=== PATIENT | male | born 1950 | race Two or more races ===

== ENCOUNTER 2024-09-11 17:28 | Inpatient (IN) | payer MEDICARE, BC ==
[~2024-09-11] VITALS: Ht 177.8 cm; Wt 96.2 kg
[2024-09-11 18:34] LABS: BASOPHILS % (AUTO) 0.6 % (0.0-2.0); EOSINOPHILS # (AUTO) 0.2 K/uL (0.0-0.7); EOSINOPHILS % (AUTO) 2.9 % (0.0-6.0); HEMATOCRIT 42 % (39-51); HEMOGLOBIN 14.3 g/dL (13.5-17.5); LYMPHOCYTES # (AUTO) 0.8 K/uL (0.8-4.8); LYMPHOCYTES % (AUTO) 10.8 % (20.0-44.0); MEAN CORPUSCULAR HEMOGLOBIN 31 PG (26.0-33.0); MEAN CORPUSCULAR HGB CONC 34 g/dl (31.0-36.0); MEAN CORPUSCULAR VOLUME 92 fL (80-96); MONOCYTES # (AUTO) 0.6 K/uL (0.1-1.30); NEUTROPHILS # (AUTO) 5.5 K/uL (1.8-8.9); NEUTROPHILS % (AUTO) 77.7 % (43.0-81.0); PLATELET COUNT (AUTO) 161 K/uL (150-450); RED BLOOD CELL COUNT(AUTO) 4.59 MIL/uL (4.5-6.0); RED CELL DISTRIBUTION WIDTH 14.8 % (11.5-15.0); WHITE BLOOD COUNT (AUTO) 7.1 K/uL (4.3-11.0)
[2024-09-11 18:40] LABS: CALCIUM, SERUM 9.7 mg/dL (8.5-10.1); CARBON DIOXIDE 24 mmol/L (21-32); CHLORIDE 106 mmol/L (98-107); GLUCOSE 142 mg/dL (74-106); POTASSIUM 4.5 mmol/L (3.5-5.1); SODIUM SERUM 140 mmol/L (136-145); UREA NITROGEN, BLOOD 34 mg/dL (7-18)
[2024-09-11 18:59] LABS: ALANINE AMINOTRANSFERASE 43 U/L (12-78); ALBUMIN 3.3 g/dL (3.4-5.0); ALKALINE PHOSPHATASE 68 U/L (46-116); ASPARTATE AMINOTRANSFERASE 33 U/L (15-37); BILIRUBIN,DIRECT 0.1 mg/dL (0.0-0.2); BILIRUBIN,TOTAL 0.5 mg/dL (0.2-1.0); TOTAL PROTEIN, SERUM 7.5 g/dL (6.4-8.2)
[2024-09-11] MEDS ORDERED: HYDROMORPHONE INJ 2 MG/ML DISP.SYRIN IV ONE (19:00)
[2024-09-11] MEDS ORDERED: MECLIZINE HCL 25 MG TABLET ONE (19:58)
[2024-09-11] MEDS: MECLIZINE HCL 12.5 MG TABLET PO ONE (20:05)
[2024-09-11] MEDS: IV NS 0.9% 1,000 ML BAG IV ONE (20:05)
[2024-09-11] MEDS ORDERED: MORPHINE SULFATE INJ 4 MG/ML DISP.SYRIN ONE (20:10)
[2024-09-11] MEDS ORDERED: ONDANSETRON HCL/PF 4 MG/2 ML VIAL ONE (20:10)
[2024-09-11] MEDS: ONDANSETRON HCL/PF 4 MG/2 ML VIAL IVP ONE (20:19)
[2024-09-11] MEDS: MORPHINE SULFATE INJ 2 MG/ML DISP.SYRIN IV ONE (20:20)
[2024-09-11] MEDS ORDERED: MAG HYDROX/AL HYDROX/SIMETH 30 ML UDC ONE (21:26)
[2024-09-11] MEDS ORDERED: FAMOTIDINE/PF INJ 20 MG/2 ML VIAL IV ONE (21:26)
[2024-09-11] MEDS: MAG HYDROX/AL HYDROX/SIMETH 30 ML UDC PO ONE (21:30)
[2024-09-11] MEDS: FAMOTIDINE/PF INJ 20 MG/2 ML VIAL IV ONE (21:30)
[2024-09-11 22:06] VITALS: BP 129/96; TEMP 97.9; O2SAT 96
[2024-09-11 22:30] VITALS: BP 129/86; TEMP 97.9; O2SAT 96
[2024-09-11 23:30] VITALS: BP_SYST 105; BP_SYST 107; BP_SYST 144; BP_DIAS 58; BP_DIAS 64; BP_DIAS 66
[2024-09-11] MEDS ORDERED: Z GUARD REMEDY 4 OZ OINT TP PRN (23:30)
[2024-09-11] MEDS ORDERED: MECLIZINE HCL 12.5 MG TABLET PO PRN (23:30)
[2024-09-11] MEDS ORDERED: MORPHINE SULFATE INJ 4 MG/ML DISP.SYRIN IV PRN (23:30)
[2024-09-11] MEDS ORDERED: ACETAMINOPHEN 325 MG TABLET PO PRN (23:30)
[2024-09-11] MEDS ORDERED: ONDANSETRON HCL/PF 4 MG/2 ML VIAL IVP PRN (23:30)
[2024-09-12] MEDS: NITROGLYCERIN PACKET 1 GM PACKET TOP SCH (00:07)
[2024-09-12] MEDS: DICYCLOMINE HCL 10 MG CAPSULE PO PRN (00:07)
[2024-09-12] MEDS: IV LR 1000 ML 1,000 ML IV PRN (00:48)
[2024-09-12 04:00] VITALS: BP 121/79; TEMP 97.9; O2SAT 95
[2024-09-12] MEDS ORDERED: DEXTROSE 50%-WATER 50 ML DISP.SYRIN IV PRN (04:30)
[2024-09-12] MEDS ORDERED: ASPI-1169 PO (04:47)
[2024-09-12] MEDS ORDERED: METO25TA6 PO (04:47)
[2024-09-12] MEDS ORDERED: ALLO100T PO (04:47)
[2024-09-12] MEDS ORDERED: ONDA-97 PO (04:47)
[2024-09-12] MEDS ORDERED: URSO250T3 PO (04:47)
[2024-09-12] MEDS ORDERED: GABA300C PO (04:47)
[2024-09-12] MEDS ORDERED: PANT40TA2 PO (04:47)
[2024-09-12] MEDS ORDERED: TELM40TA2 PO (04:47)
[2024-09-12] MEDS ORDERED: PRAV20TA4 PO (04:47)
[2024-09-12] MEDS ORDERED: TACR1CAP2 PO (04:47)
[2024-09-12] MEDS ORDERED: GLIM4TAB37 PO (04:47)
[2024-09-12] MEDS ORDERED: DAPA10TA PO (04:47)
[2024-09-12] MEDS ORDERED: CHOL500052 PO (04:47)
[2024-09-12] MEDS ORDERED: INSU100V7 SQ (04:47)
[2024-09-12] MEDS ORDERED: LORA-259 PO (04:47)
[2024-09-12 07:00] VITALS: BP 132/82; TEMP 97.3; O2SAT 98
[2024-09-12 07:18] LABS: APPEARANCE,URINE CLEAR (CLEAR); BILIRUBIN,URINE NEGATIVE (NEGATIVE); BLOOD, URINE NEGATIVE Ery/uL (NEGATIVE); COLOR,URINE YELLOW (YELLOW); KETONES,URINE NEGATIVE (NEGATIVE); LEUKOCYTE ESTERASE ,URINE NEGATIVE (NEGATIVE); NITRITE, URINE NEGATIVE (NEGATIVE); PROTEIN,URINE 2+ mg/dl (NEGATIVE); UGLUCOSE 2+ mg/dL (NEGATIVE); UROBILINOGEN,URINE 0.2 EU/dL (0.2)
[2024-09-12 07:19] LABS: BASOPHILS % (AUTO) 0.6 % (0.0-2.0); EOSINOPHILS # (AUTO) 0.1 K/uL (0.0-0.7); EOSINOPHILS % (AUTO) 2.4 % (0.0-6.0); HEMATOCRIT 39 % (39-51); HEMOGLOBIN 12.9 g/dL (13.5-17.5); LYMPHOCYTES # (AUTO) 0.7 K/uL (0.8-4.8); LYMPHOCYTES % (AUTO) 11.2 % (20.0-44.0); MEAN CORPUSCULAR HEMOGLOBIN 31 PG (26.0-33.0); MEAN CORPUSCULAR HGB CONC 33 g/dl (31.0-36.0); MEAN CORPUSCULAR VOLUME 94 fL (80-96); MONOCYTES # (AUTO) 0.4 K/uL (0.1-1.30); MONOCYTES % (AUTO) 7.2 % (2.0-12.0); NEUTROPHILS # (AUTO) 4.7 K/uL (1.8-8.9); NEUTROPHILS % (AUTO) 78.6 % (43.0-81.0); PLATELET COUNT (AUTO) 142 K/uL (150-450); RED BLOOD CELL COUNT(AUTO) 4.17 MIL/uL (4.5-6.0); RED CELL DISTRIBUTION WIDTH 14.9 % (11.5-15.0)
[2024-09-12] MEDS: SUCRALFATE 1 G/10 ML UDC GT SCH (07:30)
[2024-09-12] MEDS ORDERED: MECLIZINE HCL 25 MG TABLET PO PRN (07:30)
[2024-09-12] MEDS: BLOOD SUGAR DIAGNOSTIC 1 EACH STRIP IN SCH (07:30)
[2024-09-12 07:47] LABS: ADD URINE CULTURE NO; BACTERIA,URINE Rare /HPF (None Seen); RBC,URINE 0-2 /HPF (0-2); SQUAMOUS EPITHELIAL CELL,UR Few /HPF (None Seen)
[2024-09-12 07:59] LABS: CALCIUM, SERUM 8.6 mg/dL (8.5-10.1); CREATININE 2.3 mg/dL (0.6-1.3); PHOSPHORUS 3.8 mg/dL (2.5-4.9); POTASSIUM 4.8 mmol/L (3.5-5.1)
[2024-09-12] MEDS: PANTOPRAZOLE 40 MG VIAL IV SCH (09:31)
[2024-09-12] MEDS: ASPIRIN EC 81 MG TABLET.DR PO SCH (09:32)
[2024-09-12] MEDS: HEPARIN SODIUM, PORCINE 5000 UNITS/1 ML VIAL SQ SCH (09:35)
[2024-09-12] MEDS: ATORVASTATIN 40 MG TABLET PO SCH (10:13)
[2024-09-12] MEDS: METOPROLOL TARTRATE 25 MG TABLET PO SCH (10:13)
[2024-09-12] MEDS: ALLOPURINOL 100 MG TABLET PO SCH (10:13)
[2024-09-12] MEDS: PANTOPRAZOLE 40 MG TABLET.DR PO SCH (10:14)
[2024-09-12] MEDS: ASPIRIN 81 MG TAB.CHEW PO SCH (10:16)
[2024-09-12 11:15] LABS: THYROID STIMULATING HORMONE 1.94 uIU/mL (0.358-3.74)
[2024-09-12 11:30] VITALS: BP 160/80; TEMP 98.2; O2SAT 97
[2024-09-12] MEDS: INSULIN REGULAR, HUMAN 100 UNIT/ML 3 ML VIAL SQ PRN (12:04)
[2024-09-12 13:04] VITALS: BP 160/66
[2024-09-13] MEDS ORDERED: TACROLIMUS ANHYDROUS 0.5 MG CAPSULE PO SCH (09:00)
[2024-09-13 11:11] LABS: FOLIC ACID 9.5 ng/mL (>3.0)
== END 2024-09-12 14:57 | disposition left against medical advice (07) | DRG 641 ==
LOC: ER 17:40 → TELE 21:19
PROVIDERS: ADMIT Nurse Practitioner Family
DX: E86.0 Dehydration (principal); N17.9 Acute kidney failure, unspecified; E44.1 Mild protein-calorie malnutrition; Z94.4 Liver transplant status; K86.1 Other chronic pancreatitis; R07.9 Chest pain, unspecified; E78.5 Hyperlipidemia, unspecified; I12.9 Hypertensive chronic kidney disease with stage 1 through stage 4 chronic kidney disease, or unspecified chronic kidney disease; I25.2 Old myocardial infarction; Z79.84 Long term (current) use of oral hypoglycemic drugs; Z88.0 Allergy status to penicillin; Z95.5 Presence of coronary angioplasty implant and graft; I25.10 Atherosclerotic heart disease of native coronary artery without angina pectoris; E88.09 Other disorders of plasma-protein metabolism, not elsewhere classified; Z68.30 Body mass index [BMI] 30.0-30.9, adult; E88.01 Alpha-1-antitrypsin deficiency; N18.32 Chronic kidney disease, stage 3b; E11.22 Type 2 diabetes mellitus with diabetic chronic kidney disease; Z79.01 Long term (current) use of anticoagulants; Z79.60 Long term (current) use of unspecified immunomodulators and immunosuppressants; N20.0 Calculus of kidney; Z85.79 Personal history of other malignant neoplasms of lymphoid, hematopoietic and related tissues; R42 Dizziness and giddiness; I95.1 Orthostatic hypotension
CPT/HCPCS: 36415; 71045-TC; 80048-TC; 80061-TC; 80076-TC; 81001; 82607-TC; 82962-TC; 83690-TC; 83735-TC; 83880; 83921; 84100-TC; 84425; 84443-TC; 84484-TC; 85025-TC; 87086-TC; A4223; G0378; J1308; J1644; J1815; J2270; J2405; J2470; J7030; J7120; J8597